=== PATIENT | male | born 1970 | race Caucasian/White ===

== ENCOUNTER 2019-12-29 03:25 | Emergency (ER) | payer MEDICAID ==
[~2019-12-29] VITALS: Ht 170.2 cm; Wt 54.4 kg
--- NOTE | 2019-12-29 03:40 | NUR ---
BIBS FOR C/O DI PLANNING TO OVERDOSE ON HIS SLEEPIONG PILLS. PT AMBULATORY TO BED 13, PT WAS GOWNED UP AND PLACED ON A MONITOR. VSS. ALL BELONGING TAKEN AWWAY AND KEPT IN SAPE LOCKED. PT REMAINED ON CLOSE SUPERVISION OF A SITTER FOR SAFETY. SUICIDAL PRECAUTION IN [place]. WILL CONT TO MONITOR ,
--- NOTE | 2019-12-29 04:37 | NUR ---
CALLED LAB FOR BLOOD DRAW
[2019-12-29 04:49] LABS: APPEARANCE,URINE Clear (CLEAR); BILIRUBIN,URINE Negative (NEGATIVE); BLOOD, URINE Negative Ery/uL (NEGATIVE); COLOR,URINE Yellow (YELLOW); KETONES,URINE Negative (NEGATIVE); LEUKOCYTE ESTERASE ,URINE Negative (NEGATIVE); NITRITE, URINE Negative (NEGATIVE); PROTEIN,URINE Negative (NEGATIVE); UGLUCOSE Negative (NEGATIVE)
[2019-12-29 04:53] LABS: BASOPHILS # (AUTO) 0.1 /CMM (0.0-0.2); EOSINOPHILS % (AUTO) 2.3 % (0.0-6.0); HEMATOCRIT 28 % (39-51); LYMPHOCYTES # (AUTO) 2.1 /CMM (0.8-4.8); LYMPHOCYTES % (AUTO) 26.2 % (20.0-44.0); MEAN CORPUSCULAR HGB CONC 35 g/dl (31.0-36.0); MEAN CORPUSCULAR VOLUME 106 fL (80-96); MONOCYTES # (AUTO) 0.5 /CMM (0.1-1.30); MONOCYTES % (AUTO) 6.5 % (2.0-12.0); NEUTROPHILS # (AUTO) 5.1 /CMM (1.8-8.9); PLATELET COUNT (AUTO) 109 /CMM (150-450); RED BLOOD CELL COUNT(AUTO) 2.68 MIL/uL (4.5-6.0)
[2019-12-29 05:10] LABS: ALANINE AMINOTRANSFERASE 30 U/L (12-78); ALBUMIN 2.8 g/dL (3.4-5.0); ALCOHOL, BLOOD 169 mg/dL (0-0); ALKALINE PHOSPHATASE 234 U/L (46-116); ASPARTATE AMINOTRANSFERASE 68 U/L (15-37); BILIRUBIN,DIRECT 2.1 mg/dL (0.0-0.2); BILIRUBIN,TOTAL 2.8 mg/dL (0.2-1.0); CALCIUM, SERUM 8.5 mg/dL (8.5-10.1); CARBON DIOXIDE 29 mmol/L (21-32); CHLORIDE 102 mmol/L (98-107); CREATININE 0.9 mg/dL (0.6-1.3); GLUCOSE 94 mg/dL (74-106); SODIUM SERUM 140 mmol/L (136-145); TOTAL PROTEIN, SERUM 6.7 g/dL (6.4-8.2); UREA NITROGEN, BLOOD 7 mg/dL (7-18)
[2019-12-29 05:14] LABS: POTASSIUM 2.8 mmol/L (3.5-5.1)
[2019-12-29 05:32] LABS: ACETAMINOPHEN < 2 ug/ml (10-30); SALICYLATE < 2.0 mg/dL (2.8-20.0)
[2019-12-29 05:34] LABS: BACTERIA,URINE None seen /HPF (None Seen); RBC,URINE 0-2 /HPF (0-2); SQUAMOUS EPITHELIAL CELL,UR Few /HPF (None Seen); WBC,URINE 0-2 /HPF (0-3)
[2019-12-29] MEDS ORDERED: Magnesium 1GM/D5W 100ML PREMIX 100 ML IV ONE (05:52)
[2019-12-29] MEDS ORDERED: POTASSIUM CL. PREMIX PERIPHER. 50 ML ONE (05:52)
[2019-12-29] MEDS ORDERED: POTASSIUM CHLORIDE 20 MEQ TAB.PRT.SR PO ONE ×2 (05:53→06:00)
[2019-12-29] MEDS ORDERED: Magnesium 1GM/D5W 100ML PREMIX 300 ML IV ONE (05:54)
[2019-12-29] MEDS ORDERED: POTASSIUM CHLORIDE 10 MEQ/50 ML PREMIXED IVPB FOR PERIPHERAL LINE IV ONE (06:00)
[2019-12-29] MEDS: Magnesium 1GM/D5W 100ML PREMIX 100 ML IV SCH ×4 (06:10→07:52)
--- NOTE | 2019-12-29 06:10 | NUR ---
PER MD TO GIVE EACH BAG OF MAGNESIUM 1 GR WITHIN 30 MINUTES.
--- NOTE | 2019-12-29 07:20 | NUR ---
RECEIVED REPORT FROM DADA NDIAYE FOR [facility], PT IS AAOX4, NOT IN RESPIRATORY DISTRESS, V/S STABLE, KEPT RESTED AND COMFORTABLE, WILL CONTINUE TO MONITOR.
--- NOTE | 2019-12-29 08:19 | NUR ---
FOOD TRAY PROVIDED.
[2019-12-29 10:25] LABS: CALCIUM, SERUM 8.2 mg/dL (8.5-10.1); CREATININE 0.9 mg/dL (0.6-1.3); POTASSIUM 3.3 mmol/L (3.5-5.1)
--- NOTE | 2019-12-29 10:54 | NUR ---
CLINICALS AND FACE SHEET FAXED TO [facility].
--- NOTE | 2019-12-29 19:09 | NUR ---
Called [facility]. No beds avalilable until discharges tomorrow.
--- NOTE | 2019-12-29 19:24 | NUR ---
ASSUMED CARE FOR THIS PT
--- NOTE | 2019-12-30 00:13 | NUR ---
PT RESTING COMFORTABLY IN BED. VSS. NO ACUTE DISTRESS NOTED. SITTER AT BEDSIDE FOR SAFETY
--- NOTE | 2019-12-30 04:16 | NUR ---
PT SLEEPING AND RESTING COMFORTABLY IN BED. VSS. NO ACUTE DISTRESS NOTED. SITTER AT BEDSIDE FOR SAFETY
--- NOTE | 2019-12-30 06:12 | NUR ---
PT RESTING COMFORTABLY IN BED. VSS. NO ACUTE DISTRESS NOTED. SITTER AT BEDSIDE FOR SAFETY. WILL CONTINUE TO MONITOR
--- NOTE | 2019-12-30 11:23 | NUR ---
SW CONSULT: Lamp Cleaner reviewed pt's chart and consulted with RNPaulie before conducting a consult to assess for suicidal ideation. Lamp Cleaner conducted a consult with the pt at bedside. Pt was pleasant and alert and oriented X4. Pt reported he arrived to the ER today after experiencing suicidal ideation with a plan to "overdose on Zoloft and other medications." Pt reported he would like to proceed with voluntary inpatient psychiatric placement at [facility]. Pt reported ongoing suicidal ideation for "at least 4 years," and reported a history of previous inpatient psychiatric hospitalizations at [facility] and [facility]. Pt reported his last psychiatric hospitalization was "last week" on a 5150 hold for danger to self/suicidal ideation. Pt reported he is not connected to a mental health clinic or mental health services, and has not received a proper diagnosis. Pt reported he would like to move forward with voluntary inpatient psychiatric placement to receive a formal diagnosis and establish mental health care. Lamp Cleaner offered community mental health resources to the pt to follow up with after hospitalization; pt agreed. Lamp Cleaner provided behavioral health and substance abuse referral sand clinics for screening list in the [facility] area to the pt., and information on [facility]. Lamp Cleaner contacted [facility], [place] ([phone]) to follow up on the status of the pt's referral. Lamp Cleaner re-faxed pt's clinicals to [facility] ([phone]) at [phone] and endorsed to PATIENT CLERICAL ASSISTANTBreezy. Lamp Cleaner will follow up with the status of the pt's referral to [facility] with [facility].
--- NOTE | 2019-12-30 14:40 | NUR ---
SW NOTE: Bioinformatics Developer contacted [facility] Intake ([phone]) to follow up on the pt's referral that was sent this morning. Bioinformatics Developer spoke to Shazia form [facility] Intake. Per Shazia, nursing staff at [facility] began reviewing the clinicals at around 1400. Shazia reported he would contact this appeals writer once there was an update. Aforementioned information endorsed to Breezy at ER.
--- NOTE | 2019-12-30 14:48 | NUR ---
PT ACCEPTED TO [facility] IN [place] CALL [phone] X [phone] NURSE PAIGE ACCEPTING MD IS DR. STODDARD AND DR. BOGGS.
--- NOTE | 2019-12-30 14:50 | NUR ---
SW NOTE: Vp Clinical Research received a follow up phone call from Arleth at [facility] Intake ([phone]). Per Arleth, the pt was accepted to [facility] for voluntary inpatient psychiatric hospitalization. Pt's nurse will need to contact DADA López at [facility] ([phone], ext. [phone]). Pt's admitting doctors will be Dr. Gu and Dr. Alanis. Aforementioned information endorsed to Breezy at ER.
--- NOTE | 2019-12-30 14:51 | NUR ---
CALLED TRANSPORT AM [facility] ETA IS 1630 PER TAI.
[2019-12-30] MEDS ORDERED: LORAZEPAM 1 MG TABLET ONE (15:24)
[2019-12-30] MEDS ORDERED: LORAZEPAM 1 MG TABLET PO ONE (15:30)
[2019-12-30 16:51] VITALS: BP 135/81
--- NOTE | 2019-12-30 16:53 | NUR ---
patient left via gurney accompanied by 2 emt in no distress, denies any pain nor chest pain, going to [facility]. Report given to geoff ryder for lance.
== END 2019-12-30 16:53 ==
LOC: ER 03:25 → MERGE 03:25 → ER 12-30 16:53
DX: R45.851 Suicidal ideations (principal); E83.42 Hypomagnesemia; E87.6 Hypokalemia; F32.9 Major depressive disorder, single episode, unspecified; F41.9 Anxiety disorder, unspecified; N40.0 Benign prostatic hyperplasia without lower urinary tract symptoms
CPT/HCPCS: 36415; 80048 ×2; 80076; 80305; 80307; 80329; 81001; 83735; 85025; 96365; 96366; 96368; 99285; G0480; J3475 ×2; J3480; J7030; 81000-TC

== ENCOUNTER 2020-02-03 22:02 | Emergency (ER) | payer MEDICAID ==
[~2020-02-03] VITALS: Ht 170.2 cm; Wt 54.4 kg
--- NOTE | 2020-02-03 22:05 | NUR ---
BIB [employer] ON 5150 HOLD. PER [employer] PT HASN'T SHOWERED IN 15 DAYS, HASN'T EATEN IN 2DAYS, UNABLE TO SLEEP X3 DAYS. PT DENIES SI/HI. PT AAOX4 NO ACUTE DISTRESS NOTED, RESP EVEN AND UNLABORED. PT CALM AND COOPERATIVE AT THIS TIME. PLACE PT ON HOSPITAL GOWN, ALL BELONGINGS REMOVED AND PLACED ON LOCKED HOSPITAL LOCKER. 1:1 SITTER AT BEDSIDE FOR PT SAFETY.
[2020-02-03 22:49] LABS: BASOPHILS # (AUTO) 0.2 /CMM (0.0-0.2); BASOPHILS % (AUTO) 2.3 % (0.0-2.0); EOSINOPHILS % (AUTO) 15.5 % (0.0-6.0); HEMATOCRIT 32 % (39-51); HEMOGLOBIN 10.8 g/dL (13.5-17.5); LYMPHOCYTES # (AUTO) 2.4 /CMM (0.8-4.8); LYMPHOCYTES % (AUTO) 35.1 % (20.0-44.0); MEAN CORPUSCULAR HGB CONC 34 g/dl (31.0-36.0); MEAN CORPUSCULAR VOLUME 99 fL (80-96); MONOCYTES # (AUTO) 0.6 /CMM (0.1-1.30); MONOCYTES % (AUTO) 9.1 % (2.0-12.0); NEUTROPHILS # (AUTO) 2.6 /CMM (1.8-8.9); PLATELET COUNT (AUTO) 172 /CMM (150-450); RED BLOOD CELL COUNT(AUTO) 3.25 MIL/uL (4.5-6.0); WHITE BLOOD COUNT (AUTO) 6.7 K/uL (4.3-11.0)
[2020-02-03 22:57] LABS: CALCIUM, SERUM 9.2 mg/dL (8.5-10.1); CARBON DIOXIDE 28 mmol/L (21-32); CHLORIDE 105 mmol/L (98-107); CREATININE 1.8 mg/dL (0.6-1.3); GLUCOSE 89 mg/dL (74-106); POTASSIUM 3.7 mmol/L (3.5-5.1); SODIUM SERUM 142 mmol/L (136-145); UREA NITROGEN, BLOOD 22 mg/dL (7-18)
[2020-02-03] MEDS ORDERED: OLANZAPINE 5 MG TABLET PO ONE (23:00)
--- NOTE | 2020-02-03 23:00 | NUR ---
URINE COLLECTED AND SENT TO LAB.
[2020-02-03 23:03] LABS: ALANINE AMINOTRANSFERASE 31 U/L (12-78); ALBUMIN 3.4 g/dL (3.4-5.0); ALCOHOL, BLOOD 202 mg/dL (0-0); ALKALINE PHOSPHATASE 196 U/L (46-116); ASPARTATE AMINOTRANSFERASE 63 U/L (15-37); BILIRUBIN,DIRECT 1.1 mg/dL (0.0-0.2); BILIRUBIN,TOTAL 1.6 mg/dL (0.2-1.0); TOTAL PROTEIN, SERUM 7.6 g/dL (6.4-8.2)
[2020-02-03 23:05] LABS: ACETAMINOPHEN < 2 ug/ml (10-30); SALICYLATE < 2.0 mg/dL (2.8-20.0)
[2020-02-03 23:15] LABS: APPEARANCE,URINE Clear (CLEAR); BILIRUBIN,URINE Negative (NEGATIVE); BLOOD, URINE Negative Ery/uL (NEGATIVE); COLOR,URINE Yellow (YELLOW); KETONES,URINE Negative (NEGATIVE); LEUKOCYTE ESTERASE ,URINE Negative (NEGATIVE); NITRITE, URINE Negative (NEGATIVE); PROTEIN,URINE Trace mg/dl (NEGATIVE); UGLUCOSE Negative (NEGATIVE)
[2020-02-03 23:27] LABS: BACTERIA,URINE None seen /HPF (None Seen); HYALINE CASTS, URINE Few /LPF (None Seen); RBC,URINE 0-2 /HPF (0-2); SQUAMOUS EPITHELIAL CELL,UR Few /HPF (None Seen); WBC,URINE 0-2 /HPF (0-3)
--- NOTE | 2020-02-04 00:03 | NUR ---
TITO RODRIGUEZW AT BEDSIDE TO [facility].
[2020-02-04] MEDS ORDERED: OLANZAPINE 5 MG TABLET ONE (01:00)
--- NOTE | 2020-02-04 03:15 | NUR ---
PT ASLEEP, NO ACUTE DISTRESS NTOED, RESP EVEN AND UNLABORED. CALL LIGHT WITHIN REACH. WILL CONTINUE TO MONITOR PT CLOSELY. 1:1 SITTER REMAINS AT BEDSIDE FOR PT SAFETY.
--- NOTE | 2020-02-04 06:10 | NUR ---
PT IS MEDICALLY STABLE FOR D/C. PT ALERT, OX4. AWAKE W. STEADY GAITS. REPORTED FEELING WELL . DENIED HOMELESSNESS. STETED LIVING WITH HIS FATHER. Patient discharged to home in stable condition. Written and verbal after care instructions given. Patient verbalizes understanding of instruction. psych resources provided.
[2020-02-04 06:12] VITALS: BP 142/74
== END 2020-02-04 06:13 | disposition home or self-care (01) ==
LOC: ER 22:02
DX: F10.129 Alcohol abuse with intoxication, unspecified (principal); I10 Essential (primary) hypertension; E11.9 Type 2 diabetes mellitus without complications; Y90.7 Blood alcohol level of 200-239 mg/100 ml
CPT/HCPCS: 36415; 80048; 80076; 80305; 80307; 80329; 81001; 85025; 99285; G0480; 81000-TC